=== PATIENT | male | born 1975 | race Caucasian/White ===

== ENCOUNTER 2018-01-19 12:29 | Outpatient (CLI) | payer BC, SELFPAY ==
--- NOTE | 2018-01-19 15:13 | DI.RAD_ITS ---
SYMPTOMS/DIAGNOSIS: FOOT PAIN, M79.672 LEFT FOOT: Three views. No acute fracture or dislocation is identified. The joint spaces are well maintained. No radiopaque foreign bodies are seen in the soft tissues. IMPRESSION: No acute abnormality.
== END 2018-01-19 12:49 ==
PROVIDERS: PCP Internal Medicine; Visit Provider Nurse Practitioner
DX: M79.672 Pain in left foot (principal)
CPT/HCPCS: 73630

== ENCOUNTER 2020-03-02 13:55 | Outpatient (CLI) | payer BC, SELFPAY ==
--- NOTE | 2020-03-02 12:00 | DI.RAD_ITS ---
EXAM: XR KNEE RT 4V AP,LAT,LONI,PAT CLINICAL HISTORY: right knee pain. TECHNIQUE: 2D digital imaging was performed. COMPARISON: No exams were available for comparison FINDINGS: BONES: No acute fracture is present. No bony destructive lesion is seen. JOINTS: The knee is normally aligned. No joint effusion is seen. SOFT TISSUE: Dystrophic calcifications are seen in the soft tissues anterior to the tibia. IMPRESSION: No acute abnormality. DATA REPOSITORY: RADIATION DOSE DELIVERED:
== END 2020-03-02 14:15 ==
PROVIDERS: PCP Internal Medicine; Referring Provider Internal Medicine; Visit Provider Physician Assistant
DX: M25.561 Pain in right knee (principal)
CPT/HCPCS: 73564

== ENCOUNTER 2020-03-16 00:42 | Outpatient (CLI) | payer BC, SELFPAY ==
--- NOTE | 2020-03-16 06:15 | DI.MRI_ITS ---
EXAM: MR LOWER JOINT RT WO CLINICAL HISTORY: INTERNAL DERANGEMENT, RT KNEE PAIN,M23.91. TECHNIQUE: Multiplanar multisequence MRI was performed. COMPARISON: CR XR KNEE RT 4V AP,LAT,LONI,PAT from 03/02/2020 CR XR KNEE RT 4V AP,LAT,LONI,PAT from 03/02/2020 FINDINGS: Recent knee x-rays reveal abundant dystrophic calcification anterior to the lower half of the patella r tendon and anterior tibial tubercle as well as continuing down anterior to the tibial diaphysis. Effusion: There is a moderate-sized joint effusion. There is also a Khanna cyst in the medial popli teal fossa which measures 6 centimetres cephalocaudal by a 1.8 centimetres AP. Marrow: There is no evidence of fracture no osteochondral defect. Subarticular is noted medial tibia l plateau. Patellofemoral compartment: The quadriceps tendon is intact. The patellar ligament is intact. There is no significant thinning of the retro patellar cartilage. No significant fissure nor osteochondra l defect at this level.. No intraosseous signal which would suggest recent patellar dislocation. Th ere is subcutaneous edema over the medial patellar retinaculum but no tear of the retinaculum evident . Lateral patellar retinaculum is intact. Cruciate ligament: The anterior cruciate ligament is intact. The posterior cruciate ligament is inta ct. Medial compartment/medial meniscus: There is partially complex tear in the posterior horn of the medi al meniscus. There is some meniscal extrusion at this level into the gutter. There is subjacent sub articular edema in the medial tibial plateau.. No bucket-handle configuration. The anterior horn of the medial meniscus appears intact. There is mild local focal signal abnormality in the hyaline car tilage over the medial femoral condyle. No osteochondral defect.. No osteophytes. Medial collateral ligament: Sprain signal. No full-thickness tear. Lateral compartment/lateral meniscus: No evidence of lateral meniscal tear.. No obvious chondral def ect or osteochondral defects nor subarticular marrow edema and no osteophytes evident. Iliotibial band: Intact Lateral collateral ligament complex: Intact IMPRESSION: 1. There is tear of the posterior horn of the medial meniscus with more mild extrusion into the para meniscal gutter. No bucket-handle configuration. The root of the posterior horn appears intact. Th e anterior horn appears intact. There is subarticular edema in the subjacent medial tibial plateau. Also some degenerative signal in the overlying hyaline cartilage of the medial femoral condyle but n o osteochondral defect evident. 2. There are no tears of the lateral meniscus. 3. Sprain signal seen in the region of the medial collateral ligament but no high-grade tear of this structure. 4. Anterior and posterior cruciate ligaments are intact. 5. Moderate-sized joint effusion as well as Khanna cyst noted in the medial popliteal fossa. DATA REPOSITORY:
== END 2020-03-16 01:02 ==
PROVIDERS: PCP Internal Medicine; Visit Provider Student in an Organized Health Care Education/Training Program
DX: S83.241A Other tear of medial meniscus, current injury, right knee, initial encounter (principal); M23.91 Unspecified internal derangement of right knee; M25.461 Effusion, right knee; M71.21 Synovial cyst of popliteal space [Baker], right knee
CPT/HCPCS: 73721

== ENCOUNTER 2020-04-06 02:51 | Outpatient (CLI) | payer BC, SELFPAY ==
[2020-04-07 18:49] LABS: COVID-19 RT-PCR UVMMC Result Negative (Negative)
== END 2020-04-06 03:11 ==
PROVIDERS: PCP Internal Medicine; Visit Provider Student in an Organized Health Care Education/Training Program
DX: Z11.59 Encounter for screening for other viral diseases (principal); Z01.818 Encounter for other preprocedural examination
CPT/HCPCS: U0003

== ENCOUNTER 2020-04-11 09:57 | Day surgery (SDC) | payer BC, SELFPAY ==
--- NOTE | 2020-04-11 09:53 | W.PM.DSUDISC ---
Discharge Plan Disposition Patient Disposition: HOME Condition: Good Discharge Details Reason For Visit: Right knee medial meniscal tear Attending Provider: Kolton Parmar Primary Care Provider: Efren Venegas Home Meds and New Rx's Prescriptions: New hydrocodone-acetaminophen 5-325 mg tablet 1 tab PO Q6H PRN (Reason: severe postoperative pain) Qty: 6 RF: 0 acetaminophen 500 mg tablet 500 mg PO Q6H PRN (Reason: pain) Qty: 60 RF: 2 ibuprofen 600 mg tablet 600 mg PO TID PRN (Reason: pain) Qty: 60 RF: 1 Continued tadalafil 10 mg tablet 10 mg PO PRN PRNRF: 0 Discharge Instructions Stand Alone Forms: [facility] Knee Arthroscopy Referrals: Kolton Parmar MD [ [facility] STAFF PHYSICIAN] - Equipment/Supplies: Partial Weight Bearing Crutches Activity:: Elevate Remove Dressings/Wound Care:: 72 hours Shower/Bathe:: 72 hours Diet:: As Tolerated Discharge Orders Discharge Orders: Discharge Order (Routine); Ordered 04/11/20 Ordered By: Mely Major DS: Diagnosis Discharge Diagnosis (1) Tear of medial meniscus of right knee: Status: Acute (2) Internal derangement of right knee: Status: Acute
[2020-04-11 10:00] VITALS: BP 110/67; PULSE 72; RESP 16; TEMP 36; O2SAT 97
[2020-04-11] MEDS: Celecoxib 200 MG CAP 400 MG PO (10:21)
[2020-04-11] MEDS: Acetaminophen 500 MG TAB 1000 MG PO (10:21)
[2020-04-11] MEDS: Lactated Ringers 1,000 ML 80 ML IV (10:29)
[2020-04-11] MEDS: ceFAZolin 2 GM/50 ML BAG IVPB (12:37)
[2020-04-11] MEDS: Bupivacaine 0.5% Pres-Free 30 ML VIAL (12:59)
[2020-04-11 13:52] VITALS: BP 93/56; PULSE 54; RESP 16; TEMP 36.1; O2SAT 94
[2020-04-11 14:09] VITALS: BP 96/59; PULSE 51; RESP 16; TEMP 35.8; O2SAT 95
[2020-04-11 14:32] VITALS: BP 108/69; PULSE 51; RESP 16; TEMP 35.7; O2SAT 97
[2020-04-11 14:54] VITALS: BP 108/68; PULSE 49; RESP 16; TEMP 35.9; O2SAT 99
[2020-04-11 15:27] VITALS: BP 110/65; PULSE 47; RESP 15; O2SAT 98
--- NOTE | 2020-04-11 18:41 | ROE_ITS ---
Date of service: 04/11/20 Time of Service: 13:11 Operative Note Operative Note DATE OF PROCEDURE: 04/11/20 PRE-OP DIAGNOSIS: Right Knee Medial Meniscus Tear POST-OP DIAGNOSIS: same PROCEDURE: Right Knee Arthroscopic Partial Medial Menisectomy SURGEON: Kolton Parmar ANESTHESIA: spinal ESTIMATED BLOOD LOSS: 0 PATHOLOGY: none sent COMPLICATIONS: None Patient was transported to: PACU Patient's condition: stable Indications: I have seen Dante in clinic for symptoms of a meniscus tear. This was confirmed based on MRI and exam findings. Nonoperative measures were e xhausted but disability and pain persisted. I discussed knee arthroscopy with meniscal intervention with the patient. I reviewed the risks of the procedure to include, but not limited to, bleeding, infection, pain, stiffness, damage to nerves or vessels, recurrence, blood clot. Despite these risks, the patient elected to proceed. Findings: A diagnostic arthroscopy was performed with the following findings: Suprapatellar Pouch: Mild inflammatory changes, No loose bodies Medial Compartment: Complex medial meniscal tear, Intact meniscal root but there was some partial tearing extending into the root, Some small areas of Grade I chondromalacia, No loose bodies Notch: ACL and PCL were intact Lateral Compartment: No meniscal tear, Intact meniscal root, Softened cartilage with some fissuring but no cartilage loss, No loose bodies Patellofemoral Compartment: No significant chondromalacia, No apparent patellar maltracking Procedure Description: Dante was greeted in the preoperative holding area where the correct side was identified and marked. The consent was reviewed with the patient and signed. The history and physical was updated. All questions were answered. He was taken back to the operating room. A spinal anesthetic was administered. The patient was placed into the supine position on the operating room table. A nonsterile tourniquet was placed high onto the leg but not used. All bony prominences were well padded. Prophylactic antibiotics in the form of Cefazolin were administered. The right leg was then prepped with Chloraprep and draped in a standard fashion with stockinette and extremity drape. A timeout to confirm correct identity, side and site, procedure, allergies, anesthesia, and medical concerns was performed. The leg was placed into a pneumatic leg roger, [id number]. A standard lateral portal was made at the lateral border of the patella tendon in line with the inferior pole of the patella, soft spot. The skin and deep tissue was incised sharply and the blunt trochar was inserted atraumatically. A diagnostic arthroscopy was performed and the findings are listed above. The suprapatellar pouch had mild inflammatory change. The patellofemoral articulation showed no significant articular damage as well as good tracking. The lateral gutter had no loose bodies and the medial gutter had no loose bodies. The knee was brought into some valgus stress in extension to open the medial compartment. A medial portal was made, localized by a spinal needle. The portal was created with an #11 blade through skin and capsule under direct visualization avoiding any meniscal injury. A probe was then inserted into the medial compartment. The medial compartment was fully inspected. The chondral surface of the tibia showed no significant chondromalacia and the surface of the femur showed small areas of Grade I chondromalacia. The medial meniscus had a complex tear mostly at the root with both vertical and horizontal components. The medial piece was quite tattered. The lateral piece was turned and flipped into the notch and posterior to the medial femoral condyle. I used a probe to reduce this fragment and transected it from its base with a biter. After further evaluation, the meniscus was debrided down to a stable base using a series of biters and arthroscopic shu. It was probed afterwards to confirm that the tear had been removed and the meniscus was stable. The notch was then inspected which showed an intact ACL and an intact PCL. The leg was then brought into a figure of 4 position. The lateral compartment was fully inspected with the arthroscope and a probe. The chondral surface of the lateral femur showed no significant chondromalacia. The chondral surface of the lateral tibia showed no significant chondromalacia but the cartilage was soft with a few fissures. The lateral meniscus had no meniscal tear. The arthroscope was brought back into the suprapatellar pouch and the leg was in full extension. The knee was thoroughly irrigated with the arthroscopic fluid on high flow and pressure. Inflow was stopped and excess fluid was removed. The wounds were closed with 4-0 Nylon. They were dressed with Xeroform, 4x4 gauze, ABD pad, Kerlix and an CARLEY wrap. A cryo-cuff was applied. The patient tolerated the procedure well and was returned to the Same Day Surgery area in a stable condition suffering no known complication.
== END 2020-04-11 15:40 | disposition home or self-care (01) ==
LOC: SUR 09:57
PROVIDERS: PCP Internal Medicine; Visit Provider Student in an Organized Health Care Education/Training Program
PROC: (CPT 29870; principal; 2020-04-11 13:00)
DX: S83.231A Complex tear of medial meniscus, current injury, right knee, initial encounter (principal); X58.XXXA Exposure to other specified factors, initial encounter
CPT/HCPCS: 29881; J0131; J0690; J1100; J1885; J2001; J2405

== ENCOUNTER 2021-10-26 10:47 | Outpatient (REF) | payer BC, SELFPAY ==
[2021-10-26 18:27] LABS: Anion Gap 8.1 mmol/L (3-11); BUN 17 mg/dL (7-18); CO2 28.9 mmol/L (21.0-32.0); CREATININE 0.9 mg/dL (0.70-1.30); Calcium 8.7 mg/dL (8.5-10.1); Calculated LDL 123 mg/dL (<100); Chloride 104 mmol/L (98-107); Cholesterol 184 mg/dL (<200); Glucose 90 mg/dL (74-106); HDL Cholesterol 55 mg/dL (40-60); Potassium 4.4 mmol/L (3.5-5.1); Sodium 141 mmol/L (136-145); TSH (W/Ref FT4) 2.34 uIU/mL (0.36-3.74); Triglyceride 32 mg/dL (<150)
[2021-11-10 11:03] LABS: Testosterone, Free 23.5 ng/dL (4.26-16.4); Testosterone, Total 674 ng/dL (240-950)
== END 2021-10-26 10:48 | disposition home or self-care (01) ==
LOC: NCHCN 10:47
PROVIDERS: PCP Internal Medicine; Visit Provider Family Medicine
DX: N52.9 Male erectile dysfunction, unspecified (principal); Z13.220 Encounter for screening for lipoid disorders; Z13.1 Encounter for screening for diabetes mellitus; Z13.29 Encounter for screening for other suspected endocrine disorder
CPT/HCPCS: 80048; 80061; 84402; 84403; 84443

== ENCOUNTER 2023-02-17 07:01 | Day surgery (SDC) | payer BC, SELFPAY ==
--- NOTE | 2023-02-16 17:45 | W.PM.DSUDISC ---
Date of service: 02/17/23 Time of Service: 08:31 Discharge Plan Disposition Patient Disposition: Home Condition: Good Discharge Details Reason For Visit: Screening colonocsopy Attending Provider: Shoaib Murray Primary Care Provider: Finesse Lewis Home Meds and New Rx's Prescriptions: Continued cyclobenzaprine 5 mg tablet 5 mg PO TID PRN tadalafil 10 mg tablet 10 mg PO PRN PRN Patient Comments: TAKE ONE TABLET BY MOUTH ONE HOUR PRIOR TO ANTICIPATING INTERCOURSE NEEDED acetaminophen 500 mg tablet 500 mg PO Q6H PRN (Reason: pain) Qty: 60 2RF ibuprofen 600 mg tablet 600 mg PO TID PRN (Reason: pain) Qty: 60 1RF Discontinued bisacodyl [Dulcolax (bisacodyl)] 5 mg tablet,delayed release (DR/EC) 5 mg PO ONCE Qty: 4 0RF Rx Instructions: Take per colonoscopy instructions provided by ordering providers office polyethylene glycol 3350 17 gram/dose powder 17 g PO ONCE Qty: 238 0RF Rx Instructions: Take per colonoscopy instructions provided by ordering providers office amoxicillin-pot clavulanate [Augmentin XR] 1,000-62.5 mg tablet extended release 12 hr 1 tab PO BID Discharge Instructions Instructions: Diverticulosis (GEN), Colorectal Polyps (GEN), Diverticulosis Diet (GEN) Additional Instructions: Dante, we were able to complete your colonoscopy today without any difficulty. I did find a polyp within the rectum. It was quite small. I removed it completely. I will take a week or 2 for me to get the results on the nature of the polyp, and at that point I will be in touch with recommendations for your next colonoscopy. Incidentally, you also have a fair amount of sigmoid diverticulosis. These are weak spots that occur in the colon wall. The sigmoid is 1 particular region of the colon or large intestine. This is the most common place to get diverticulosis. These pockets can become infected, and when that happens, patients typically have pain on the left side of their abdomen or lower across the middle portion. It is often times accompanied by fevers and feeling quite ill. During those times, patient should be treated with antibiotics. There is also a surgical treatment for this, although that is typically reserved for patients that have had multiple attacks of diverticulitis with frequent hospitalization. I have attached some general information here regarding diverticular disease. If you have any questions at all, please do not hesitate to contact me at any point. 1. If tolerated, consume a soft, low fiber diet for 1-2 days. 2. Do not drive, drink alcohol, operate machinery, make critical decisions, or do activities that require coordination or balance for 24 hours. 3. Because air was put into your colon during the procedure, expelling air from your rectum (passing gas or farting) is normal. 4. You may not have a bowel movement for 1-3 days because of the colonoscopy prep. This is normal. 5. Go directly to the emergency room if you notice any of the following: Develop chills (warm to touch), or if you have a thermometer and your temperature is above 101 Difficulty breathing or difficultly swallowing Persistent vomiting Severe abdominal pain, other than gas cramps Severe chest pain Black, tarry stools Any bleeding ? exceeding one tablespoon 6. Call your physician if the site where your intravenous was started becomes red, swollen, painful, and warm to touch. 7. Your physician has reviewed your pre-procedure medications. Please continue to take those medications as previously ordered. You will be given specific information/education regarding any changes to your medications before leaving. Activity:: Activity as Tolerated Diet:: As Tolerated Discharge Orders Discharge Orders: Discharge Order (Routine); Ordered 02/16/23 Ordered By: Shoaib Murray DS: Diagnosis Discharge Diagnosis (1) Screening for colon cancer: Status: Acute Asessment and Plan: Follow-up on polypectomy results
--- NOTE | 2023-02-16 17:47 | W.COLOREPORT ---
Date of service: 02/17/23 Time of Service: 08:33 Colonoscopy Report Date of procedure: 02/17/23 Pre-op diagnosis general: screening colonoscopy Post-op diagnosis procedure note: other (Rectal polyp, diverticulosis) Procedure: Colonoscopy with polypectomy Surgeon: Shoaib Murray Anesthesia Type: General:No Airway Estimated blood loss (mL): 5 Pathology: other (Rectal polyp) Complications: None Disposition: same day Indications: Dante is 48 years old and he needs his dwight screening colonoscopy Prep: Miralax/Dulcolax Procedure Start Time: 08:02 Procedure End Time: 08:21 Retraction Time: 13 Findings: Sigmoid diverticulosis extending from about 18 cm beyond the anus to 30 cm. 0.25 cm rectal Procedure Description: After the induction of monitored anesthetic care, and with the patient in left lateral decubitus position, I began by performing an external anorectal exam.? Perineum and skin were normal, as was the anal verge.? There was no evidence of external hemorrhoids.? Next, I performed a digital rectal exam.? I did not appreciate any abnormal findings.? Next, I advanced a colonoscope into the rectal vault.? Within the midportion of the rectum was a 0.25 cm sessile rectal polyp. I removed this with cold forceps. There was minimal bleeding. I performed retroflexion.? I this appeared normal.? Using insufflation, I then advanced the colonoscope beyond the rectal folds and into the sigmoid colon before advancing towards the cecum.? There was sigmoid diverticulosis extending from about 18 cm beyond the anus to 30 cm.? The scope was noted to be in the cecum by identification of the ileocecal valve and appendiceal orifice.? I then began withdrawing the colonoscope using repeated irrigation as necessary for full evaluation of the colonic mucosa. ?Once the scope was withdrawn to the level of the rectum, great care was taken to examine portions of the rectal folds.? Finally, the scope was withdrawn and the patient was brought to the same-day surgery recovery unit as the anesthetic wore off. ?The findings and instructions were shared with the patient prior to discharge. [place] Bowel Prep [place] Bowel Prep Right Colon: 3 Left Colon: 2 Transverse Colon: 3 Total Score: 8
[2023-02-17 07:00] VITALS: BP 115/81; PULSE 58; RESP 18; TEMP 36.7; O2SAT 99
[2023-02-17] MEDS: Lactated Ringers 1,000 ML 80 ML IV (07:30)
--- NOTE | 2023-02-17 07:55 | W.ANESPRE ---
General Info Date of Service Date Performed: 02/17/23 Height: 5 ft 9 in Weight: 99.8 kg Body Mass Index (BMI): 32.5 Surgical Procedure: Operation Date: 02/17/23 08:20 Proposed Procedure Side Surgeon karri Murray MD Meds Allergies and Home Medications Allergies Allergy/AdvReac Type Severity Reaction Status Date / Time No Known Allergies Allergy Verified 02/17/23 07:22 Home Medication Medication Instructions Recorded tadalafil 10 mg tablet 10 mg PO PRN PRN 04/05/20 acetaminophen 500 mg tablet 500 mg PO Q6H PRN pain #60 tabs 04/11/20 ibuprofen 600 mg tablet 600 mg PO TID PRN pain #60 tabs 04/11/20 cyclobenzaprine 5 mg tablet 5 mg PO TID PRN 11/19/21 Current Visit Medications: Current Medications Generic Name Dose Route Start Last Admin Trade Name Freq PRN Reason Stop Dose Admin Hyoscyamine Sulfate 0.125 mg 02/16/23 17:48 Hyoscyamine 0.125 Mg Sl/Oral/Chew SL 03/18/23 17:47 DIRECTED PRN Ringer's Solution 1,000 mls @ 80 mls/hr 02/17/23 06:00 02/17/23 07:30 IV 03/16/23 23:59 80 mls/hr INFUSION FILI Administration IV Miscellaneous Supplies 1 each 02/17/23 06:00 Iv Access IV 03/16/23 23:59 DIRECTED FILI Ondansetron HCl 4 mg 02/16/23 17:48 Ondansetron 4 Mg/2 Ml Vial IVP 03/18/23 17:47 Q4H PRN PRN Nausea / Vomiting Sodium Chloride 0 ml 02/17/23 06:00 Normal Saline Flush 10 Ml Syr IV 03/16/23 23:59 PRN PRN Sodium Chloride 0 ml 02/17/23 06:00 Normal Saline 10 Ml Vial IJ 03/16/23 23:59 DIRECTED PRN Sterile Water 0 ml 02/17/23 06:00 Water,Injection,Sterile 10 Ml Vial IJ 03/16/23 23:59 DIRECTED PRN PFSH Active Problems Active Problems: Problem Status Onset Code Neck mass R22.1 Sebaceous cyst L72.3 Screening for colon cancer Z12.11 Tobacco smoker within last 12 months F17.200 Erectile dysfunction N52.9 Back muscle spasm M62.830 Infertility counseling Z31.69 Tear of medial meniscus of right knee S83.241A Internal derangement of right knee 03/01/20 M23.91 Medical History Medical History Cyst of perineum in male referral 05/21/18 Alex. several yrs 05/17/18 enlarged and sore, popped 2/4 while at work, purulent drainage - cheezy. worried about possible infection in prosthetic hip. Degenerative joint disease s/p thr Left foot pain Nicotine dependence Varicose veins of both lower extremities without ulcer or inflammation Surgical History Surgical History History of hip replacement L Hx of tonsillectomy Tobacco Smoking/Tobacco Use Status: Current every day Tobacco Type: cigarettes Smoking cigarettes per day: 10 Alcohol Alcohol Intake: current Alcohol intake frequency: a few times a week Alcohol type: beer, wine and hard liquor Substance Use Substance use: Daily Substance use type: marijuana Details: smokes marijuana 02/16/23 Vital Signs and Lab Results Vital Signs Most Recent Vital Signs in EMR: Most Recent Vital Signs Temp Pulse Resp BP Pulse Ox 36.7 C 58 L 18 115/81 99 02/17/23 07:00 02/17/23 07:00 02/17/23 07:00 02/17/23 07:00 02/17/23 07:00 Lab Results Blood Type / Crossmatch: No Data to Display Complete Blood Count: No Data to Display Complete Metabolic Panel: No Data to Display Liver Function Panel: No Data to Display Coagulation Panel: No Data to Display Cardiac Panel: No Data to Display Arterial Blood Gas: No Data to Display Venous Blood Gas: No Data to Display Pancreas Panel: No Data to Display Thyroid Panel: No Data to Display Infectious Disease: No Data to Display Blood Cultures: No Data to Display Toxicology Panel: No Data to Display Anesthesia Assessment and Plan Anesthesia History Personal History: No History of Anesthesia Complications and PONV Family History: No Family History of Anesthesia Complications Exercise Tolerance Exercise Tolerance: Metabolic Equivalents>4 Pertinent Negatives Pertinent Negatives: No Symptoms of GERD Cardiac & Pulmonary Exam Cardiac Exam: Normal S1/S2 Heart Sounds Pulmonary Exam: Clear Bilateral Breath Sounds Implantable Cardiac Device Does patient have a Pacemaker or an ICD?: No Airway Exam Known Difficult Airway: No Mallampati Class: 2 Mouth Opening: Normal (> 3cm) Thyromental Distance: Greater than 3 cm Neck Range of Motion: Full ROM Neck Circumference: Normal Teeth Condition: Normal Dentition ASA Classification ASA Score: ASA 2 Emergency Case?: No NPO Status NPO Status: NPO Clears >2 hours, Solids >8 hours Anesthesia Plan Resuscitation Status: Full Code Anesthesia Technique: MAC Anesthesia Airway Planned: Natural Airway Monitors Used: Standard Monitors
[2023-02-17 07:57] VITALS: BMI 32.5
--- NOTE | 2023-02-17 08:04 | BOWEL_PTH ---
PATIENT: Dante Vizcaino LOC: [facility] U#:[id number] AGE/SX: 48/M ROOM: RE02/17/[address]: Shoaib Murray MD : 1975 BED: DIS: 02/17/2023 SPEC #: [id number] RECD: 02/17/23 12:05 STATUS: [facility] #: [id number] AYESHA: 02/17/23 08:[address]: Shoaib Murray DEPT: Surgical Specimen RECD BY: Carol Heredia ENTERED: 02/17/23 12:06 SP TYPE: Bowel OTHR DR: Finesse Lewis Tissues: 1 - BIOPSY BOWEL Procedures: GROSS AND MICRO LEVEL 4 Comments: [id number]
[2023-02-17 08:27] VITALS: BP 100/65; PULSE 67; RESP 18; TEMP 36.3; O2SAT 97
--- NOTE | 2023-02-17 08:48 | W.ANESPOSTOP ---
Postoperative Evaluation Date, Time and Location Date Performed: 02/17/23 Time Performed: 08:48 Patient Location: Day Surgery Unit Vital Signs Most Recent Imported Vital Signs: Most Recent Vital Signs Temp Pulse Resp BP Pulse Ox 36.3 C L 67 18 100/65 97 02/17/23 08:27 02/17/23 08:27 02/17/23 08:27 02/17/23 08:27 02/17/23 08:27 Pain Score Most Recent Pain Score: Most Recent Pain Score Pain Level 0 02/17/23 08:27 Assessment Mental Status: Awake (Alert & Oriented to Patient Baseline) Airway and Respiratory Function: Patent airway with normal (patient baseline) respiratory exam Cardiovascular Function: Hemodynamically Stable Hydration Status: Adequately Hydrated Nausea & Vomiting: No Nausea or Vomiting Pain: Pt. Denies Any Pain Peripheral Nerve Block: Patient did not receive a nerve block
[2023-02-17 09:22] VITALS: BP 116/72; PULSE 76; RESP 18; TEMP 36.5; O2SAT 98
== END 2023-02-17 09:24 | disposition home or self-care (01) ==
LOC: SUR 07:01
PROVIDERS: PCP Family Medicine; Visit Provider Surgery
PROC: 0DJD8ZZ Inspection of Lower Intestinal Tract, Via Natural or Artificial Opening Endoscopic (ICD-10-PCS; CPT 45378; principal; 2023-02-17 08:15)
DX: Z12.11 Encounter for screening for malignant neoplasm of colon (principal); K63.5 Polyp of colon; K57.30 Diverticulosis of large intestine without perforation or abscess without bleeding
CPT/HCPCS: 45380; 88305; J2001

== ENCOUNTER 2023-07-07 18:16 | Outpatient (REF) | payer BC, SELFPAY ==
[2023-07-07 21:16] LABS: Abs Immature Grans 0.02 10^3/uL (0.0-0.06); Absolute Basophil Count 0.04 10^3/uL (0.0-0.2); Absolute Eosinophil Count 0.11 10^3/uL (0.0-0.7); Absolute Lymphocyte Count 2.99 10^3/uL (1.2-3.4); Absolute Monocyte Count 0.73 10^3/uL (0.1-0.8); Absolute Neutrophil Count 3.01 10^3/uL (1.2-6.7); Basophils % 0.6; Eosinophils % 1.6; HCT 41.1 % (40.0-50.0); HGB 13.5 g/dL (13.5-17.5); Immature Grans % 0.3; Lymphocytes % 43.3; MCH 31.1 pg (27.0-33.0); MCHC 32.8 % (32.0-36.0); MCV 95 fL (80-95); MPV 10.6 fL (8.0-11.0); Monocytes % 10.6; Neutrophils % 43.6; Platelet Count 186 10^3/uL (130-400); RBC 4.34 10^6/uL (4.36-5.78)
[2023-07-07 21:51] LABS: D-Dimer 695 ng/mlFEU (<500)
== END 2023-07-07 18:17 | disposition home or self-care (01) ==
LOC: LBN 18:16
PROVIDERS: PCP Family Medicine; Visit Provider Nurse Practitioner Family
DX: R60.0 Localized edema (principal)
CPT/HCPCS: 85025; 85379

== ENCOUNTER 2024-04-05 02:04 | Outpatient (CLI) | payer BC, SELFPAY ==
--- NOTE | 2024-04-05 | DI.RAD_ITS ---
Exam(s) XR SHOULDER LT COMPLETE 2+V EXAM: XR SHOULDER LT COMPLETE 2+V CLINICAL HISTORY: M25.519 Pain in shoulder. TECHNIQUE: 2D digital imaging was performed. Five views. COMPARISON: CR XR SHOULDER RT COMPLETE 2+V from 04/05/2024 FINDINGS: BONES: No acute fracture is present. No bony destructive lesion is seen. JOINTS: No dislocation present. Spurring at the AC joint. Glenohumeral joint space is maintained. SOFT TISSUE: Normal. IMPRESSION: Degenerative changes of the acromioclavicular joint. DATA REPOSITORY: RADIATION DOSE DELIVERED:
--- NOTE | 2024-04-05 15:05 | DI.RAD_ITS ---
Exam(s) XR SHOULDER RT COMPLETE 2+V EXAM: XR SHOULDER RT COMPLETE 2+V CLINICAL HISTORY: M25.519 Pain in shoulder. TECHNIQUE: 2D digital imaging was performed. Five views. COMPARISON: No exams were available for comparison FINDINGS: BONES: No acute fracture is present. No bony destructive lesion is seen. JOINTS: No dislocation present. Spurring at AC joint. Glenohumeral joint space is maintained. SOFT TISSUE: Normal. IMPRESSION: Degenerative changes of the AC joint. DATA REPOSITORY: RADIATION DOSE DELIVERED:
== END 2024-04-05 02:24 ==
LOC: DI 02:04
PROVIDERS: PCP Family Medicine; Visit Provider Family Medicine
DX: M19.011 Primary osteoarthritis, right shoulder (principal); M19.012 Primary osteoarthritis, left shoulder
CPT/HCPCS: 73030

== ENCOUNTER 2024-09-20 10:48 | Outpatient (CLI) | payer BC, SELFPAY ==
--- NOTE | 2024-09-20 09:30 | DI.RAD_ITS ---
Exam(s) XR WRIST LT COMP NAVICULAR EXAM: XR WRIST LT COMP NAVICULAR CLINICAL HISTORY: left wrist injury. TECHNIQUE: 2D digital imaging was performed. COMPARISON: No exams were available for comparison FINDINGS: Four views No evidence of fracture or dislocation. No significant ulnar variance. Scaphoid and scapholunate di stance are normal. There are no degenerative changes. No erosions. Bone density normal. IMPRESSION: No significant osseous findings in the left wrist. DATA REPOSITORY: RADIATION DOSE DELIVERED:
== END 2024-09-20 10:49 | disposition home or self-care (01) ==
LOC: DIORS 10:48
PROVIDERS: PCP Family Medicine; Referring Provider Family Medicine; Visit Provider Physician Assistant
DX: S69.92XA Unspecified injury of left wrist, hand and finger(s), initial encounter (principal); X58.XXXA Exposure to other specified factors, initial encounter
CPT/HCPCS: 73110

== ENCOUNTER 2024-10-06 09:11 | Day surgery (SDC) | payer BC, SELFPAY ==
--- NOTE | 2024-10-06 07:28 | PDOC.DSDIS_ITS ---
Date of service: 10/06/24 Discharge Plan Disposition Patient Disposition: Home Condition: Good Discharge Details Reason For Visit: L ECTR Attending Provider: Kolton Parmar Primary Care Provider: Finesse Lewis Home Meds and New Rx's Prescriptions: New acetaminophen 500 mg tablet 1,000 mg PO TID Qty: 90 0RF ibuprofen 600 mg tablet 600 mg PO TID PRN (Reason: pain) Qty: 90 0RF Continued tadalafil 10 mg tablet 10 mg PO PRN PRN Patient Comments: TAKE ONE TABLET BY MOUTH ONE HOUR PRIOR TO ANTICIPATING INTERCOURSE NEEDED Discontinued acetaminophen 500 mg tablet 500 mg PO Q6H PRN (Reason: pain) Qty: 60 2RF ibuprofen 600 mg tablet 600 mg PO TID PRN (Reason: pain) Qty: 60 1RF Discharge Instructions Stand Alone Forms: Ghulam Parra Tunnel Release Referrals: Kolton Parmar MD [ [facility] STAFF PHYSICIAN, Orthopaedic Surgical] Activity:: Activity as Tolerated Remove Dressings/Wound Care:: 48 hours Shower/Bathe:: 48 hours Diet:: As Tolerated Discharge Orders Discharge Orders: Discharge Order (Routine); Ordered 10/06/24 Ordered By: Robert Agrawal DS: Diagnosis Discharge Diagnosis (1) Bilateral carpal tunnel syndrome: Status: Acute
[2024-10-06 09:44] VITALS: BP 107/68; PULSE 74; RESP 18; TEMP 36.6; O2SAT 97
[2024-10-06] MEDS: Cephalexin 500 MG CAP 1000 MG PO (09:53)
[2024-10-06] MEDS: Lidocaine 1% Multi-Dose W/EPI 1/100,000 50 ML VIAL (11:10)
[2024-10-06] MEDS: Sodium Bicarbonate 50 MEQ/50 ML VIAL (11:11)
[2024-10-06 11:24] VITALS: BP 100/64; PULSE 58; RESP 18; TEMP 36.6; O2SAT 96
--- NOTE | 2024-10-06 11:32 | ROE_ITS ---
Operative Note Operative Note PRE-OP DIAGNOSIS: Left Carpal Tunnel Syndrome POST-OP DIAGNOSIS: same PROCEDURE: Left Endoscopic Carpal Tunnel Release SURGEON: Kolton Parmar ANESTHESIA TYPE: Local By Surgeon Refer to Anesthesia Record ESTIMATED BLOOD LOSS: 0 PATHOLOGY: none sent TOURNIQUET TIME: 7 COMPLICATIONS: None Patient was transported to: same day Patient's condition: stable Indications: I have seen Dante in clinic for symptoms of carpal tunnel syndrome. The numbness, tingling, and pain limited function. Clinical exam findings with nerve conduction tests confirmed the diagnosis of carpal tunnel syndrome. Nonoperative measures such as bracing, time, activity modifications had been tried but disability and pain persisted. I discussed carpal tunnel release with the patient. I reviewed the risks of the procedure to include, but not limited to, bleeding, infection, pain, stiffness, incomplete release, damage to nerves or vessels, persistent numbness, recurrence. Despite these risks, the patient elected to proceed. Findings: There was tightened carpal tunnel. This was dilated and released successfully with the endoscopic with increased space within the tunnel. The antebrachial fascia was released proximally freeing the median nerve at the wrist. Procedure Description: Dante was greeted in the preoperative holding area where the correct side was identified and marked. The consent was reviewed with the patient and signed. The history and physical was updated. All questions were answered. He was taken back to the operating room. The patient was placed into the supine position on the operating room table with the left arm on an arm board. A nonsterile tourniquet was placed high onto the arm. All bony prominences were well padded. Prophylactic antibiotics in the form of Cephalexin were administered prior to coming to the OR in [facility]. The left arm was then prepped with Chloraprep and draped in a standard fashion with stockinette and extremity drape. A timeout to confirm correct identity, side and site, procedure, allergies, anesthesia, and medical concerns was performed. The surgical site was marked in the volar wrist creases in line with the radial border of the fourth ray. This area was anesthetized with approximately 6cc of 1% Lidocaine. The limb was then exsanguinated with an Esmarch. The skin was incised with a 15 blade, approximately 1cm. The skin only was cut and the deeper tissue was dissected bluntly with a tenotomy scissor, avoiding passing nerve and venous structures. The fascia was penetrated and opened bluntly. A two-prong skin hook was placed under this proximal fascial edge. A series of hamate finders were used to identify and dilate the carpal tunnel. Synovial elevator was used to free synovial attachments to the underside of the transverse carpal ligament. My thumb was kept in the palm to donovan the distal e xtent of the carpal tunnel and correctly position the hand. The Microaire endoscope was inserted without difficulty and without resistance. Excellent visualization showed horizontally running fibers of the transverse carpal ligament (TCL). The distal extent of the TCL was visualized and the end of the scope palpated with the thumb. The blade was elevated and withdrawn from distal to proximal. The TCL was split into two flaps. The endoscope was reinserted to confirm complete release and any remnant ligament was incised. The scope was withdrawn and the proximal aspect of the carpal tunnel was grossly inspected and appeared release with the median nerve visible. The antebrachial fascia at the level of the wrist was then freed from the overlying skin and then the underlying median nerve with blunt dissection. This was transected longitudinally for about 3cm proximal to the wrist incision. The wound was then irrigated with easy flow of irrigant distally and proximally. The incision was closed with a single 4-0 Nylon suture. The wound was dressed with Xeroform, Gauze, Kerlix and Jorge. The tourniquet was deflated with the initial dressing and held with some pressure. Blood flow returned easily to all digits with capillary refill less than 2 seconds. The patient tolerated the procedure well and was returned to the Same Day Surgery area in a stable condition suffering no known complication. Date of Procedure: 10/06/24
== END 2024-10-06 11:35 | disposition home or self-care (01) ==
LOC: SUR 09:11
PROVIDERS: PCP Family Medicine; Visit Provider Student in an Organized Health Care Education/Training Program
PROC: 01N54ZZ Release Median Nerve, Percutaneous Endoscopic Approach (ICD-10-PCS; CPT 29848; principal; 2024-10-06 11:00)
DX: G56.02 Carpal tunnel syndrome, left upper limb (principal)
CPT/HCPCS: 29848; J2004

== ENCOUNTER 2025-04-06 09:23 | Outpatient (REF) | payer BC, SELFPAY ==
[2025-04-06 16:22] LABS: Cholesterol 166 mg/dL (<200); Glucose 97 mg/dL (74-106); HDL Cholesterol 49 mg/dL (>or=40)
[2025-04-07 09:39] LABS: PSA, Screening 0.6 ng/mL (<=3.5)
== END 2025-04-06 09:24 | disposition home or self-care (01) ==
LOC: NCHCN 09:23
PROVIDERS: PCP Family Medicine; Visit Provider Family Medicine
DX: Z00.00 Encounter for general adult medical examination without abnormal findings (principal); Z12.5 Encounter for screening for malignant neoplasm of prostate
CPT/HCPCS: 80061; 82947; 84153